=== PATIENT | female | born 1970 | race Caucasian/White ===

== ENCOUNTER → 2017-12-05 | Outpatient (CLI) | payer OTHER ==
[~2017-12-05] MED LIST: MULT-1335 PO; ONDA4TAB PO; PARO-243 PO; TRAM-627 PO
--- NOTE | 2017-12-09 10:49 | RADIOLOGY IMAGING REPORT ---
FACILITY: [facility] PATIENT NAME: NGHIA VINCENT : [id number] MR: [id number] V: [id number] EXAM DATE: [id number] ORDERING PHYSICIAN: NEERAJ LAMBERT TECHNOLOGIST: Saida Del Castillo PROCEDURE:BILATERAL DIGITAL SCREENING MAMMOGRAM WITH CAD ASSISTED INTERPRETATION & 3D TOMOSYNTHESIS COMPARISON:Prior mammograms 10/29/12. INDICATIONS:SCREENING IMPLANTS FINDINGS: There are bilateral sub glandular breast implants in place. Moderately dense fibroglandular tissue is seen anterior to the implants. There is no demonstration of malignant appearing mass, malignant appearing calcifications or other secondary sign of malignancy in either breast. DIAGNOSTIC CATEGORY 2--BENIGN FINDING. RECOMMENDATIONS: ROUTINE MAMMOGRAM AND CLINICAL EVALUATION. IMPRESSION: BIRADS 2: Benign finding. No significant abnormality is seen. Dictated by: Carol Ann Hatfield M.D. on 12/08/2017 at 17:52 Transcribed by: RENAE on 12/09/2017 at 8:12 Approved by: Carol Ann Hatfield M.D. on 12/09/2017 at 10:48 [facility]
== END ==
LOC: MAMO 02:07
PROVIDERS: ATTEND Physician Assistant
DX: Z12.31 Encounter for screening mammogram for malignant neoplasm of breast (principal)
CPT/HCPCS: 77063; 77067